=== PATIENT | female | born 1945 | race Caucasian/White ===

== ENCOUNTER 2024-06-01 12:51 | Emergency (ER) | payer MEDICARE, BC ==
[~2024-06-01] VITALS: Ht 165.1 cm; Wt 85.9 kg
[2024-06-01 12:52] VITALS: TEMP 97.9
[2024-06-01 15:37] VITALS: BP 166/88; PULSE 93; RESP 16; O2SAT 98
== END 2024-06-01 15:40 | disposition home or self-care (01) ==
LOC: ER 12:51
DX: S93.602A Unspecified sprain of left foot, initial encounter (principal); X50.1XXA Overexertion from prolonged static or awkward postures, initial encounter; Y93.89 Activity, other specified; Y92.89 Other specified places as the place of occurrence of the external cause; Y99.8 Other external cause status
CPT/HCPCS: 73610; 73630; 99284; L4360